=== PATIENT | male | born 1985 | race Caucasian/White ===

== ENCOUNTER 2016-05-28 22:23 | Inpatient (IN) | payer OTHER ==
--- NOTE | 2016-05-28 23:52 | HP ---
COWS - Scale Resting Pulse: 0= MI 80 or Below Sweatin=Flushed/Facial Moisture Restless Observation: 5= Unable to Sit Still Pupil Size: 1= Pupils >than Normal Bone or Joint Aches: 1= Mild Discomfort Runny Nose/ Eye Tearin= Nasal Congestion GI Upset > 30mins: 1= Stomach Cramp Tremor Observation: 2= Slight Tremor Visible Yawning Observation: 0= None Anxiety or Irritability: 4=Extreme Anxiety Goose Flesh Skin: 0=Smooth Skin COWS Score: 17 Admission ROS S - [facility] Chief Complaint: WITHDRAWAL SX'S Allergies/Adverse Reactions: Allergies Allergy/AdvReac Type Severity Reaction Status Date / Time No Known Allergies Allergy Verified 05/28/16 23:45 History of Present Illness: 31 Y.O. MALE WITH H/O OPIOID DEPENDENCE HERE FOR DETOX TXMENT. RECENTLY INCARCERATED RELEASED 3 MONTHS AGO. HIS IS ON PROBATION AND IS COURT MANDATED. Exam Limitations: No Limitations - Ebola screening Have you traveled outside of the country in the last 21 days: No - Review of Systems Constitutional: Chills, Malaise, Night Sweats EENT: reports: Nose Congestion Respiratory: reports: No Symptoms reported Cardiac: reports: No Symptoms Reported GI: reports: Abdominal cramping : reports: No Symptoms Reported Musculoskeletal: reports: Back Pain Integumentary: reports: No Symptoms Reported Neuro: reports: No Symptoms reported Endocrine: reports: No Symptoms Reported Hematology: reports: No Symptoms Reported Psychiatric: reports: Anxious Other Systems: Reviewed and Negative Patient History - Patient Medical History Hx Anemia: No Hx Asthma: No Hx Chronic Obstructive Pulmonary Disease (COPD): No Hx Cancer: No Hx Cardiac Disorders: No Hx Congestive Heart Failure: No Hx Hypertension: No Hx Hypercholesterolemia: No Hx Pacemaker: No HX Cerebrovascular Accident: No Hx Seizures: No Hx Dementia: No Hx Diabetes: No Hx Gastrointestinal Disorders: No Hx Liver Disease: No Hx Genitourinary Disorders: No Hx Sexually Transmitted Disorders: No Hx Renal Disease (ESRD): No Hx Thyroid Disease: No Hx Human Immunodeficiency Virus (HIV): No Hx Hepatitis C: No Hx Depression: No Hx Suicide Attempt: No Hx Bipolar Disorder: No Hx Schizophrenia: No Other Medical History: DENIES - Patient Surgical History Past Surgical History: No - PPD History Previous Implant?: Yes Documented Results: Negative w/o proof Implanted On Prior [facility] Admission?: No PPD to be Administered?: Yes - Smoking Cessation Smoking history: Current every day smoker Have you smoked in the past 12 months: Yes Aproximately how many cigarettes per day: 20 Cigars Per Day: 0 Hx Chewing Tobacco Use: No Initiated information on smoking cessation: Yes 'Breaking Loose' booklet given: 05/28/16 - Substance & Tx. History Hx Alcohol Use: No Hx Substance Use: Yes Substance Use Type: Cocaine, Heroin Hx Substance Use Treatment: Yes ([facility]) - Substances Abused HEROIN Route: Inhalation Frequency: Daily Amount used: 20 Age of first use: 11 Date of Last Use: 05/28/16 COCAINE Route: Smoking Frequency: Daily Amount used: 5 GMS Age of first use: 15 Date of Last Use: 05/28/16 Family Disease History - Family Disease History Family Disease History: Heart Disease: Father (OR , ETOH ABUSE), Other: Brother (HEROIN O.D.) Admission Physical Exam [facility] - Physical General Appearance: Yes: Appropriately Dressed, Anxious HEENTM: Yes: Hearing grossly Normal, Normocephalic, Normal Voice, KAYLI, Pharynx Normal, Nasal Congestion Respiratory: Yes: Chest Non-Tender, Lungs Clear, Normal Breath Sounds, No Respiratory Distress, No Accessory Muscle Use Neck: Yes: Within Normal Limits, No masses,lesions,Nodules, Supple Breast: Yes: Breast Exam Deferred Cardiology: Yes: Regular Rhythm, Regular Rate, S1, S2 Abdominal: Yes: Normal Bowel Sounds, Non Tender, Flat, Soft Genitourinary: Yes: Within Normal Limits Back: Yes: Normal Inspection Musculoskeletal: Yes: full range of Motion, Gait Steady Extremities: Yes: Normal Capillary Refill, Normal Range of Motion, Non-Tender, Tremors Neurological: Yes: land clearer II-XII NML intact, Fully Oriented, Alert, Motor Strength 5/5 Integumentary: Yes: Normal Color, Warm, Moist Lymphatic: Yes: Within Normal Limits - Diagnostic (1) Opioid dependence with withdrawal Current Visit: Yes Status: Acute (2) Cocaine dependence, uncomplicated Current Visit: Yes Status: Acute (3) Nicotine dependence Current Visit: Yes Status: Chronic Qualifiers: Nicotine product type: cigarettes Substance use status: uncomplicated Qualified Code(s): F17.210 - Nicotine dependence, cigarettes, uncomplicated Cleared for Admission [facility] - Detox or Rehab [facility] Level of Care: Medically Managed Detox Regimen/Protocol: Methadone BHS Breath Alcohol Content Breath Alcohol Content: 0 Vital Signs - Vital Signs Vital Signs Refused: No Temperature: 96 F Temperature Source: Oral Pulse Rate: 66 Respiratory Rate: 18 Blood Pressure: 112/64 BP Location: Left Arm Blood Pressure Position: Sitting - Height Height: 5 ft 9 in - Weight Weight: 78.018 kg Weight Measurement Method: Standing Scale Body Mass Index (BMI): 25.4 Urine Drug Screen - Test Device Lot Number: [id number] Expiration Date: 01/11/18 - Control Is Test Valid: Yes - Results Drug Screen Negative: No Urine Drug Screen Results: THC-Marijuana, FLAVIO-Cocaine, OPI-Opiates, OXY- Oxycodone
[2016-05-29 00:02] VITALS: BMI 25.4
[2016-05-29] MEDS ORDERED: P-EPHED 60MG/TRIPROLIDI 2.5MG TABLET PO PRN (00:02)
[2016-05-29] MEDS ORDERED: LOPERAMIDE HCL 2 MG CAPSULE PO PRN (00:02)
[2016-05-29] MEDS ORDERED: ACETAMINOPHEN 325 MG TABLET (FP) PO PRN (00:02)
[2016-05-29] MEDS ORDERED: diphenhydrAMINE HCL 50 MG CAPSULE PO PRN (00:02)
[2016-05-29] MEDS ORDERED: MAGNESIUM HYDROX 2400MG/30ML ORAL SUSPENSION 30 ML CUP PO PRN (00:02)
[2016-05-29] MEDS ORDERED: NICOTINE POLACRILEX 2 MG GUM BC PRN (00:02)
[2016-05-29] MEDS ORDERED: METHADONE HCL 10 MG TABLET (FOR DETOX USE ONLY) PO ONE ×3 (00:02→23:00)
[2016-05-29] MEDS ORDERED: hydrOXYzine PAMOATE 50 MG CAPSULE (FP) PO PRN (00:02)
[2016-05-29] MEDS ORDERED: MAG HYDROX/AL HYDROX/SIMETH 30 ML UNIT-DOSE CUP PO PRN (00:02)
[2016-05-29] MEDS ORDERED: IBUPROFEN 400 MG TABLET (FP) PO PRN (00:02)
[2016-05-29] MEDS ORDERED: MENTHOL/PHENOL 1 EACH UD MM PRN (00:02)
[2016-05-29] MEDS ORDERED: MAGNESIUM CITRATE 300 ML BOTTLE PO PRN (00:02)
[2016-05-29] MEDS ORDERED: guaiFENesin/D-METHORPHAN HB 10 ML UNIT-DOSE CUPS PO PRN (00:02)
[2016-05-29] MEDS: diazePAM 5 MG TABLET PO PRN ×4 (01:39→14:32)
--- NOTE | 2016-05-29 09:12 | EKG ---
Test Reason : Blood Pressure : / mmHG Vent. Rate : 054 BPM Atrial Rate : 054 BPM P-R Int : 140 ms QRS Dur : 098 ms QT Int : 446 ms P-R-T Axes : 039 021 035 degrees QTc Int : 422 ms SINUS BRADYCARDIA INCOMPLETE RIGHT BUNDLE BRANCH BLOCK BORDERLINE ECG NO PREVIOUS ECGS AVAILABLE Confirmed by CORNELIO ADAM MD ([id number]) on 05/29/2016 9:11:33 AM Referred By: Confirmed By:CORNELIO ADAM MD
[2016-05-29] MEDS: PRENATAL VITAMINS W/ FOLIC ACID TABLET (FP) PO SCH (10:33)
[2016-05-29] MEDS: NICOTINE 21 MG/24 HOURS TOPICAL PATCH TD SCH (10:34)
--- NOTE | 2016-05-29 11:46 | PN ---
BHS COWS - Scale Resting Pulse: 0= CT 80 or Below Sweatin=Flushed/Facial Moisture Restless Observation: 1= Difficult to Sit Still Pupil Size: 1= Pupils >than Normal Bone or Joint Aches: 2= Severe Diffuse Aches Runny Nose/ Eye Tearin= Runny Nose/Eyes GI Upset > 30mins: 3= Vomiting/Diarrhea Tremor Observation of Outstretched Hands: 2= Slight Tremor Visible Yawning Observation: 1= 1-2x During Session Anxiety or Irritability: 4=Extreme Anxiety Goose Flesh Skin: 0=Smooth Skin COWS Score: 18 BHS Progress Note (SOAP) Subjective: Anxious, restless, tremor, interrupted sleep Objective: 05/29/16 11:45 Vital Signs - 8 hr 05/29/16 05/29/16 06:50 10:23 Temperature 97.3 F L 96 F L Pulse Rate 61 64 Respiratory 16 19 Rate Blood Pressure 94/57 110/70 Labs pending Assessment: 05/29/16 11:45 Withdrawal Symptoms Plan: Continue Detox
[2016-05-29] MEDS ORDERED: ONDANSETRON *ODT* 4 MG TABLET SL PRN (11:47)
[2016-05-29 12:57] LABS: MCH 28.4 pg (25.7-33.7); MCHC 33.3 g/dl (32.0-35.9); MEAN CELL VOLUME 85.2 fl (80-96); MEAN PLT VOLUME 10.4 fl (7.5-11.1); PLATELET COUNT 240 K/MM3 (134-434); RDW 13.8 % (11.9-15.9); WHITE BLOOD COUNT 8.4 K/mm3 (4.0-10.0)
[2016-05-29 13:11] LABS: ALBUMIN 3.3 g/dl (3.4-5.0); ANION GAP 8 (8-16); BILIRUBIN,TOTAL 0.3 mg/dL (0.2-1.0); CALCIUM 8.6 mg/dL (8.5-10.1); CO2 29 mmol/L (21-32); CREATININE 1.2 mg/dL (0.7-1.3); GLUCOSE,RANDOM 106 mg/dL (74-106); SGOT/AST 13 U/L (15-37); SGPT/ALT 14 U/L (12-78)
[2016-05-29 13:12] LABS: ALK PHOS 78 U/L (45-117); TOT PROT 6.2 g/dl (6.4-8.2)
[2016-05-29] MEDS ORDERED: ONDANSETRON *ODT* 4 MG TABLET SL ONE (13:15)
[2016-05-29] MEDS ORDERED: THIAMINE HCL 100 MG TABLET (FP) PO SCH (22:00)
[2016-05-29 22:03] LABS: URINE APPEARANCE CLEAR; URINE BILIRUBIN NEGATIVE (NEGATIVE); URINE BLOOD NEGATIVE (NEGATIVE); URINE COLOR LTYELLOW; URINE GLUCOSE (UA) NEGATIVE (NEGATIVE); URINE KETONE NEGATIVE (NEGATIVE); URINE LEUK ESTERASE NEGATIVE (NEGATIVE); URINE NITRITE NEGATIVE (NEGATIVE); URINE PROTEIN NEGATIVE (NEGATIVE); URINE UROBILINOGEN NEGATIVE E.U./dl (0.2-1.0)
[2016-05-30] MEDS: diazePAM 5 MG TABLET PO PRN (05:27)
[2016-05-30 06:32] VITALS: BP 109/72; PULSE 60; TEMP 97.5
[2016-05-30] MEDS ORDERED: METHADONE HCL 10 MG TABLET (FOR DETOX USE ONLY) PO ONE (10:00)
[2016-05-30] MEDS: PRENATAL VITAMINS W/ FOLIC ACID TABLET (FP) PO SCH (10:00)
[2016-05-30] MEDS: NICOTINE 21 MG/24 HOURS TOPICAL PATCH TD SCH (10:00)
--- NOTE | 2016-05-30 10:40 | DS ---
[facility] Detox Discharge Summary Admission Date: 05/29/16 Discharge Date: 05/30/16 - History Present History: Cocaine Dependence, Opioid Dependence Additional Comments: PT STORMED OUT FROM WHERE HE WAS MAKING A PHONE CALL SCREAMING ANGRILY, AND SAYS HE DOES NOT WANT TO BE HERE ANYMORE AND WANTS TO GET OUT OF HERE IMMEDIATELY. PT DID NOT GIVE ANYONE A CHANCE TO ASK WHAT THE ISSUE WAS HE WAS OVERTAKEN WITH ANGER/RAGE. SECURITY WAS CALLED TO THE UNIT AND PT SIGNED HIMSELF OUT AMA. Pertinent Past History: DENIES - Physical Exam Results Vital Signs: Vital Signs Temperature 97.5 F L 05/30/16 06:31 Pulse Rate 60 05/30/16 06:31 Respiratory Rate 18 05/30/16 06:31 Blood Pressure 109/72 05/30/16 06:31 O2 Sat by Pulse Oximetry (%) Pertinent Admission Physical Exam Findings: WITHDRAWAL SX - Medication Discharge Medications: Ambulatory Orders NK [No Known Home Medication] 05/28/16 - Diagnosis (1) Cocaine dependence, uncomplicated Current Visit: Yes Status: Acute (2) Opioid dependence with withdrawal Current Visit: Yes Status: Acute (3) Nicotine dependence Current Visit: Yes Status: Chronic Qualifiers: Nicotine product type: cigarettes Substance use status: uncomplicated Qualified Code(s): F17.210 - Nicotine dependence, cigarettes, uncomplicated - AMA Did Patient Leave Against Medical Advice: Yes (AMA)
[2016-05-31] MEDS ORDERED: METHADONE HCL 5 MG TABLET (FOR DETOX USE ONLY) PO ONE (10:00)
[2016-06-01] MEDS ORDERED: METHADONE HCL 5 MG TABLET (FOR DETOX USE ONLY) PO ONE (10:00)
[2016-06-02] MEDS ORDERED: METHADONE HCL 10 MG TABLET (FOR DETOX USE ONLY) PO ONE (10:00)
[2016-06-03] MEDS ORDERED: METHADONE HCL 5 MG TABLET (FOR DETOX USE ONLY) PO ONE (06:00)
== END 2016-05-30 09:20 | disposition left against medical advice (07) | DRG 770 ==
LOC: YASAS 22:23 → Y3N 05-29
PROVIDERS: ADMIT Internal Medicine; ATTEND Internal Medicine
PROC: HZ2ZZZZ Detoxification Services for Substance Abuse Treatment (ICD-10-PCS; principal; 2016-05-29)
DX: F11.23 Opioid dependence with withdrawal (principal); F14.20 Cocaine dependence, uncomplicated; F17.210 Nicotine dependence, cigarettes, uncomplicated; Z59.0 Homelessness
CPT/HCPCS: 36415; 80053; 81003; 85027; 86593; 93005; 93010